=== PATIENT | male | born 1950 | race Caucasian/White ===

== ENCOUNTER → 2017-09-12 10:23 | Outpatient (CLI) | payer MEDICARE, OTHER, SELFPAY ==
--- NOTE | 2017-09-12 | CYSPIN_PTH ---
PATIENT: JESUS HEARD LOC: [facility] U#:[id number] AGE/SX: 74/M ROOM: RE09/12/[address]: JOHNNA: 1950 BED: DIS: SPEC #: [id number] RECD: 09/12/17 14:23 STATUS: ROLAN BONILLA #: [id number] OLMAN: 09/12/17 00:[address]: Edilberto Rodriguez,Out of DEPT: CYTOLOGY RECD BY: Jewel Mcmillan Tissues: Urine Procedures: Pap Stain (control) Special Stain Group II Cytospin Fluid HEADER OPERATION: Not noted PRE-OP DIAGNOSIS: Hematuria TISSUE SUBMITTED: Urine for cytology DIAGNOSIS CYTOLOGY Urine for cytology (cytospin): Negative for malignant cells. AM:avery 09/13/17 CYTOLOGY STUDY Slides are reviewed. CYTOLOGY GROSS Received is 12 ml of gold clear fluid labeled with the patient's name and and designated per the requisition as urine. Submitted for cytology preparation. 09/12/17 TC:5 CPT: 38174
[2017-09-12 10:42] LABS: Cytology, Body Fluid / CSF SEE PATHOLOGY REPORT
[2017-09-12 12:04] LABS: Color, Urine Yellow (Yellow); Glucose, Dipstick Normal (Normal); Ketone-Dipstick Negative (Negative); Leukocyte Esterase-Dipstick 25 /ul (Negative); Nitrite-Dipstick Negative (Negative); Occult Blood-Urine 25 /ul (Negative); Protein-Dipstick 500 mg/dl (Negative); Specific Gravity, Urine 1.015 (1.002-1.030); Urine Bilirubin Dipstick Negative (Negative); Urine Clarity Clear (Clear); Urine Urobilinogen 1 mg/dl (Normal); Urine pH 6.5 (5.0 - 8.0)
[2017-09-12 12:13] LABS: PSA,Total - Annual Screen 2.37 ng/mL (0.00-4.00)
[2017-09-12 13:42] LABS: Bacteria 0 SEEN /hpf (None Seen); Mucous, Urine 0 SEEN /hpf (<or=2+); White Blood Cells 0 SEEN /hpf (0-5)
[2017-09-12 13:55] LABS: Squamous Epithelial Cells - UA 0-5 SEEN /hpf (0-5)
[2017-09-12 13:56] LABS: Red Blood Cells-Urine 0-5 SEEN /hpf (0-5)
== END ==
DX: R31.29 Other microscopic hematuria (principal); N40.1 Benign prostatic hyperplasia with lower urinary tract symptoms; Z12.5 Encounter for screening for malignant neoplasm of prostate
CPT/HCPCS: 36415; 81001; 81002; 84153; 88108; 88313; G0103

== ENCOUNTER → 2017-10-12 16:20 | Outpatient (CLI) | payer MEDICARE, OTHER, SELFPAY ==
--- NOTE | 2017-10-12 09:47 | COLBX_PTH ---
PATIENT: JESUS HEARD LOC: [facility] U#:[id number] AGE/SX: 74/M ROOM: RE10/12/[address]: Dr. Jermaine Maldonado MD : 1950 BED: DIS: SPEC #: [id number] RECD: 10/12/17 15:48 STATUS: ROLAN CHAD #: [id number] OLMAN: 10/12/17 09:[address]: Jermaine Maldonado DEPT: SURGICAL PATHOLOGY RECD BY: Richard Weir ENTERED: 10/15/17 08:05 SP TYPE: COLON BX OTHR DR: NOEMY Tissues: A - Cecum, NOS B - COLON BIOPSY Procedures: Surgery Specimen Level IV HEADER OPERATION: Colonoscopy with polypectomy PRE-OP DIAGNOSIS: Screening / polyp TISSUE SUBMITTED: A ? Cecal polyp and polyp biopsies, rule out adenoma, B ? Hepatic flexure polyp MICROSCOPIC DIAGNOSIS A. Cecal polyp and polyp biopsy: Fragments of tubulovillous adenoma. B. Hepatic flexure polyp, biopsy: Fragments of tubular adenoma. ALANNA:avery 10/16/17 MICROSCOPIC DESCRIPTION Slides are reviewed. GROSS DESCRIPTION A - Received in fixative is one container labeled with the patient's name and designated cecal polyp and polyp biopsy. The specimen consists of a piece of easton-pink polyp measuring 0.5 x 0.4 x 0.3 cm. Also present in the container are multiple fragments of easton soft tissue measuring in aggregate 0.3 x 0.2 x 0.1 cm. The entire specimen is submitted in one cassette. B - Received in fixative is one container labeled with the patient's name and designated hepatic flexure polyp. The specimen consists of multiple irregular fragments of light easton soft tissue that in aggregate measure 1 x 0.3 x 0.1 cm. The specimen is totally submitted in one cassette. / ALANNA:avery 10/15/17 TC:5 CPT: 71635 x2
== END ==
PROVIDERS: Visit Provider Internal Medicine Gastroenterology
DX: Z12.11 Encounter for screening for malignant neoplasm of colon (principal); K63.5 Polyp of colon
CPT/HCPCS: 88305

== ENCOUNTER → 2018-05-06 18:12 | Outpatient (CLI) | payer MEDICARE, OTHER, SELFPAY ==
[2018-05-06 18:24] LABS: Color, Urine Yellow (Yellow); Glucose, Dipstick Normal (Normal); Ketone-Dipstick 5 mg/dl (Negative); Leukocyte Esterase-Dipstick 500 /ul (Negative); Mucous, Urine 0 SEEN /hpf (<or=2+); Nitrite-Dipstick Positive (Negative); Occult Blood-Urine 25 /ul (Negative); Protein-Dipstick 500 mg/dl (Negative); Specific Gravity, Urine 1.015 (1.002-1.030); Urine Bilirubin Dipstick Negative (Negative); Urine Clarity Cloudy (Clear); Urine Urobilinogen 4 mg/dl (Normal)
[2018-05-06 18:34] LABS: Bacteria 2+ /hpf (None Seen); Red Blood Cells-Urine 0-5 SEEN /hpf (0-5); Squamous Epithelial Cells - UA 0-5 SEEN /hpf (0-5); White Blood Cells 50-100 SEEN /hpf (0-5)
== END ==
PROVIDERS: Visit Provider Physician Assistant
DX: N39.0 Urinary tract infection, site not specified (principal); R35.0 Frequency of micturition
CPT/HCPCS: 81001; 87077; 87086; 87088; 87186

== ENCOUNTER → 2018-05-31 08:11 | Outpatient (CLI) | payer MEDICARE, OTHER, SELFPAY ==
[2018-05-31 11:04] LABS: ALB/GLOB Ratio 0.8 RATIO (0.9-2.4); AST(SGOT) 71 U/L (15-37); Alanine Aminotransfer ALT/SGPT 58 U/L (16-61); Albumin, Serum 3.2 g/dL (3.2-5.0); Alkaline Phosphatase 76 U/L (45-117); Anion Gap 7 (5-15); BUN 13 mg/dL (7-18); BUN/Creat Ratio 13.8 RATIO (10-20); Calcium,Total 8.3 mg/dL (8.5-10.1); Chloride 106 mmol/L (98-107); Cholesterol 164 mg/dL (200); Creatinine, Serum 0.94 mg/dL (0.70-1.30); EST Glomerular Filtration Rate 85 mL/min (>60); Est Glom Filt Rate - Afr Amer 102 mL/min (>60); Globulin 3.8 g/dL (2.2-4.2); Glucose 101 mg/dL (74-106); High Density Lipoprotein 41 mg/dL; Potassium 3.8 mmol/L (3.5-5.1); Sodium Level 140 mmol/L (136-145); Triglycerides 85 mg/dL; Very Low Density Lipoprotein 17 mg/dL (5-40)
== END ==
PROVIDERS: Family Provider Internal Medicine; PCP Internal Medicine
DX: E11.9 Type 2 diabetes mellitus without complications (principal); I48.0 Paroxysmal atrial fibrillation; E26.09 Other primary hyperaldosteronism; Z12.5 Encounter for screening for malignant neoplasm of prostate
CPT/HCPCS: 36415; 80053; 80061

== ENCOUNTER → 2018-12-10 15:09 | Outpatient (CLI) | payer MEDICARE, OTHER, SELFPAY ==
[2018-10-09 08:29] VITALS: BMI 35.2
[2018-12-10 17:59] LABS: Anion Gap 7 (5-15); BUN 27 mg/dL (7-18); BUN/Creat Ratio 21.6 RATIO (10-20); Calcium,Total 9.6 mg/dL (8.5-10.1); Chloride 104 mmol/L (98-107); Creatinine, Serum 1.25 mg/dL (0.70-1.30); EST Glomerular Filtration Rate 61 mL/min (>60); Est Glom Filt Rate - Afr Amer 74 mL/min (>60); Glucose 110 mg/dL (74-106); Potassium 4.5 mmol/L (3.5-5.1); Sodium Level 139 mmol/L (136-145)
== END ==
PROVIDERS: Family Provider Internal Medicine; PCP Internal Medicine; Referring Provider Nurse Practitioner Family; Visit Provider Nurse Practitioner Family
DX: I10 Essential (primary) hypertension (principal)
CPT/HCPCS: 36415; 80048

== ENCOUNTER → 2019-06-02 09:42 | Outpatient (CLI) | payer MEDICARE, OTHER, SELFPAY ==
[2019-05-23 11:18] VITALS: BMI 35.2
[2019-06-02 12:35] LABS: Hematocrit 35.3 % (40-54); Hemoglobin 11.9 g/dL (13.0-16.5); Mean Corp Hgb Conc 33.7 g/dL (32-36); Mean Corpuscular Hgb 38.4 pg (27.0-32.0); Mean Corpuscular Volume 113.9 fL (80-94); Mean Platelet Vol. 11.8 fl (6.2-12.0); POSITIVE COUNT YES; POSITIVE MORPHOLOGY YES; Platelet Count 91 K/mm3 (150-450); RBC Distribution Width SD 54.6 fl (35.1-43.9); White Blood Count 2.7 K/mm3 (4.4-11.0)
[2019-06-02 12:38] LABS: Differential Indicated MANUAL DIFF
[2019-06-02 12:59] LABS: AST(SGOT) 92 U/L (15-37); Alanine Aminotransfer ALT/SGPT 69 U/L (16-61); Albumin, Serum 3.9 g/dL (3.2-5.0); Alkaline Phosphatase 71 U/L (45-117); Anion Gap 8 (5-15); BUN 33 mg/dL (7-18); BUN/Creat Ratio 22.8 RATIO (10-20); Calcium,Total 9.6 mg/dL (8.5-10.1); Chloride 104 mmol/L (98-107); Cholesterol 169 mg/dL (200); Creatinine, Serum 1.45 mg/dL (0.70-1.30); EST Glomerular Filtration Rate 51 mL/min (>60); Est Glom Filt Rate - Afr Amer 62 mL/min (>60); Globulin 3.8 g/dL (2.2-4.2); Glucose 113 mg/dL (74-106); High Density Lipoprotein 64 mg/dL; Potassium 4.8 mmol/L (3.5-5.1); Protein, Total 7.7 g/dL (6.4-8.2); Sodium Level 138 mmol/L (136-145); Triglycerides 68 mg/dL; Very Low Density Lipoprotein 14 mg/dL (5-40)
[2019-06-02 13:03] LABS: Hemoglobin A1c 5.8 % (4.2-6.3)
[2019-06-02 13:17] LABS: Hypochromasia RARE; Lymphocyte 36 % (19-41); Macrocytosis 1+; Monocyte 17 % (0-10); Neutrophil-Band 3 % (0-5); Neutrophil-Segmented 44 % (47-70); Platelet Estimate MOD DEC (ADEQ); Total Cells Counted 100 (MANUAL DIFF)
[2019-06-02 13:18] LABS: Absolute Lymphocyte Count 0.97 X10^3/uL (0.83-4.51); Absolute Neutrophil Count 1.2 X10^3/uL (2.0-7.7)
[2019-06-02 13:47] LABS: Microalbumin:Creatinine Ratio 263.7 mg/g CRE (<30 mg/g CRE)
[2019-06-03 12:11] LABS: Vitamin B12 337 pg/mL (211-911)
[2019-06-03 14:17] LABS: Pathologist Review Reviewed
== END ==
PROVIDERS: Family Provider Internal Medicine; PCP Internal Medicine; Visit Provider Internal Medicine
DX: D61.818 Other pancytopenia (principal); E53.8 Deficiency of other specified B group vitamins; E11.9 Type 2 diabetes mellitus without complications; E78.5 Hyperlipidemia, unspecified
CPT/HCPCS: 36415; 80053; 80061; 82043; 82570; 82607; 82746; 83036; 83921; 85025

== ENCOUNTER → 2019-06-13 08:10 | Outpatient (CLI) | payer MEDICARE, OTHER, SELFPAY ==
[2019-06-02 09:55] VITALS: BMI 35.2
--- NOTE | 2019-06-13 08:25 | US_ITS ---
STUDY: ABDOMINAL ULTRASOUND - RIGHT UPPER QUADRANT REASON FOR VISIT: Male, 68 years old fatty liver. Abnormal liver function tests. TECHNIQUE: Ultrasound evaluation of the right upper quadrant was performed with real-time and static burrell-scale imaging. TECHNICAL QUALITY: Adequate. COMPARISON: None. FINDINGS: Liver: The liver is slightly enlarged and measures 18.1 cm. There is increased echogenicity consistent with fatty infiltration. The bile ducts are within normal limits. There is hepatic color flow. The direction of portal flow is hepatopetal. There is no demonstrated mass lesion. Gallbladder: Normal distended gallbladder. The gallbladder wall measures 2.8 mm. There is a negative sonographic Batista's sign. There is no pericholecystic fluid. There is a solitary echogenic gallstone within the gallbladder. Common Bile Duct (C.B.D.): The common bile duct measures 3.8 mm. Pancreas: Normal size of the head, body and tail of the pancreas. There is normal echogenicity of the pancreas. There is no demonstrated pancreatic mass or cyst. Right Kidney: Normal size of the right kidney. The right kidney measures 12 cm x 5.5 cm x 6.3 cm. Normal renal cortex. The right cortex measures 1.7 cm. There is no demonstrated renal mass or cyst. There is no right hydronephrosis. US/Abdomen Limited IMPRESSION: Mild hepatomegaly and fatty infiltration of the liver. 6 mm gallstone. Electronically Signed: Kevin Landaverde, at 15:12 EDT , Service support ,
== END ==
PROVIDERS: Family Provider Internal Medicine; PCP Internal Medicine; Referring Provider Internal Medicine; Visit Provider Internal Medicine
DX: R74.8 Abnormal levels of other serum enzymes (principal); K76.0 Fatty (change of) liver, not elsewhere classified
CPT/HCPCS: 76705

== ENCOUNTER → 2019-07-04 08:11 | Outpatient (CLI) | payer MEDICARE, OTHER, SELFPAY ==
[2019-06-24 13:49] VITALS: BMI 32.6
--- NOTE | 2019-07-03 | IMM_PTH ---
PATIENT: JESUS HEARD LOC: CT U#:[id number] AGE/SX: 74/M ROOM: RE07/04/[address]: Dr. Sincere Virk MD : 1950 BED: DIS: SPEC #: [id number] RECD: 07/07/19 10:16 STATUS: ROLAN REWendy #: [id number] OLMAN: 07/03/19 00:[address]: Sincere Virk DEPT: IMMUNOHISTOCHEMISTRY RECD BY: Sharla Astudillo ENTERED: 07/07/19 10:18 SP TYPE: IMMUNO OTHR DR: Dr. Ki Townsend MD Tissues: B - Bone marrow of iliac crest Procedures: CD20 (add) CD45 (add) CD5 (add) CD79A (add) CD3 (initial) PHYSICIAN & INSTITUTION [place] [id number] SPECIMEN INFORMATION: Tissue Source: B - Bone marrow biopsy clot Clinical Info: Pancytopenia Specimen Number: [id number] CPT code: 30632, 47606 x4 METHODOLOGY: Deparaffinized sections of prefer/formalin-fixed tissue or PAP/DQ stained slides are incubated with monoclonal/polyclonal antibodies/oligonucleotide probes. Localization is made via biotin free immunoperoxidase method. Appropriate controls are performed and reacted as expected. Results on target cell population are indicated in the following table: RESULTS: ANTIBODY / CLONE RESULT Block B CD3 (PS1) positive CD5 (SP10) positive CD79a (11E3) positive CD20 (L26) positive CD45 (RP2/18) positive These tests were developed and their performance characteristics determined by [facility]. They may not have been cleared or approved by the U.S. Food and Drug Administration. The FDA has determined that such clearance or approval is not necessary. The above immunohistochemical/dualISH markers are ordered and reviewed by the Pathologist. INTERPRETATION: B. Bone marrow biopsy clot: Scant interstitial small lymphocytic infiltrates and a minute lymphoid aggregate, polytypic in nature. See comment. This case has been reviewed in consultation with Dr. Kemp who concurs with the above diagnosis. ALANNA:avery 07/08/19
--- NOTE | 2019-07-03 | BMB_PTH ---
PATIENT: JESUS HEARD LOC: CT U#:[id number] AGE/SX: 74/M ROOM: RE07/04/[address]: Dr. Sincere Virk MD : 1950 BED: DIS: SPEC #: [id number] RECD: 07/04/19 09:58 STATUS: ROLAN CHAD #: [id number] OLMAN: 07/03/19 00:[address]: Sincere Virk DEPT: BONE MARROW RECD BY: Gordo Le ENTERED: 07/04/19 11:11 SP TYPE: BMB OT DR: Dr. Ki Townsend MD Tissues: A - Bone marrow, NOS B - Bone marrow, NOS C - Bone marrow, NOS Procedures: Decalcification bone/plaque Bone Marrow Aspiration Bone Marrow Core Biopsy Iron Stain Bone Marrow HEADER OPERATION: Bone marrow biopsy and aspiration PRE-OP DIAGNOSIS: Pancytopenia TISSUE SUBMITTED: A - Core, B - Clot, C - Smears, and send outs (flow, cytogenetics and MDS FISH) BONE MARROW DIAGNOSIS Right hip bone marrow core, clot and aspirate smears: Normocellular marrow with trilineage hematopoiesis. A minute lymphoid aggregate. . Flow cytometry study from [facility] shows CD5 positive, CD23 positive B-cell population, <1% of leukocytes. Complete report is viewable in patient's EMR.. SJ:avery 07/09/19 COMMENT The bone marrow core biopsy is limited in evaluation and bone marrow clot shows minute fragments of bone marrow clots. Aspirate smears show marked hemodilution. If there is a high suspicion of lymphoma, lymph node biopsy is suggested if clinically indicated. Case has been reviewed in consultation with Dr. Kemp who concurs with the above diagnosis. IDC:AM BONE MARROW STUDY Slides are reviewed. CBC DATE: 07/04/19 WBC 3.3; RBC 3.04; HGB 11.3; HCT 33.7; MCV 110.9; RDW 11.9; PLTS 100,000 SEGS 57%; LYMPHS 25%; MONOS 12%; EOS 5%; BASOS 0%, META 1% PERIPHERAL SMEAR: Submitted. RBC: Macrocytic anemia. WBC: Leukopenia and neutropenia. The WBC count is compatible to as reported above. PLTS: Mildly decreased. BONE MARROW ASPIRATE DIFFERENTIAL: 200 cell count. Blasts % (normal 0-2): 0 Promyelocytes % (normal 1-5): 0 Myelocytes and metamyelocytes % (normal 17-41): 42 Bands and Segs % (normal 15-32): 45 Eos % (normal 1-6): 1 Basos % (normal 0-1): 0 Monocytes % (normal 0-4): 2 Erythroid Precursors % (normal 17-35): 6 Lymphocytes % (normal 7-13): 4 Plasma Cells % (normal 0-2): 0 ASPIRATE FINDINGS: Site: Right hip Aspicular, Hypocellular M/E ratio: See comment (Normal 1.5-4.0) Comment: Marked hemodilution is noted. Above count may not be accurate due to hemodilution. Megakaryocytes are not seen. All the submitted smears are examined. CORE BIOPSY FINDINGS: Site: Right hip Adequacy: Limited Cellularity: 50-60% M/E ratio: Within normal limits. Megakaryocytes: Present and adequate in number. Bony trabeculae: Unremarkable. Granulomas: Absent. Lymphoid aggregate: Absent. Atypical infiltrate: Absent. ASPIRATE CLOT FINDINGS: Site: Right hip Marrow particles: Rare Cellularity: 50% M/E ratio: Within normal limits. Megakaryocytes: Present and adequate in number. Granulomas: Absent. Lymphoid aggregates: A minute lymphoid aggregate is noted. Atypical infiltrates: Absent. Comment: Immunohistochemistry ([id number]) shows scant interstitial infiltrates of small lymphocytes and a minute lymphoid aggregate, polytypic in nature. SPECIAL STAINS WITH MATCHED CONTROLS: Iron: Absent Reticulin: No significant increase of reticulin fibers is noted. PAS: Highlights myeloid cells and megakaryocytes. BONE MARROW GROSS A - Received is a container labeled with the patient's name and designated bone marrow right. The specimen consists of a piece of core biopsy of bone measuring 0.5 cm in length and 0.2 cm in diameter. The entire specimen is submitted in one cassette after decalcification. B - Received labeled with the patient's name and designated bone marrow right is a specimen that consists of approximately 0.5 cc of bloody fluid that on filtration yields multiple minute fragments of blood clots measuring in aggregate 0.3 x 0.3 x <0.1 cm. The specimen is totally submitted in one cassette. C - Also received are 11 unstained and 1 peripheral stained slides. The unstained slides are submitted for appropriate staining. Also received are three green top tubes which are sent to our reference lab for flow, cytogenetics and MDS FISH. 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 The case was examined at [facility] (#[id number]) and the following diagnosis was rendered. Bone marrow, aspirate smears, core biopsy and clot section: Suboptimal sampling showing normocellular marrow with trilineage hematopoiesis. Macrocytic anemia and thrombocytopenia and leukopenia. Please see complete above mentioned consultation report in EMR
[2019-07-04] VITALS (9 sets, daily range): BP systolic 100–159; BP diastolic 42–88; PULSE 81–100; RESP 12–19; TEMP 37; O2SAT 98–100; BMI 31.5
--- NOTE | 2019-07-04 08:26 | CT_ITS ---
PROCEDURE: CT GUIDED BONE marrow biopsy of the posterior aspect of the right iliac bone. DATE: July 04, 2019. INDICATION: Male, 68 years old. [place] cytopenia. PHYSICIAN: Kevin Landaverde M.D. RADIATION DOSAGE (If Supplied By Facility): CTDIvol = ( 16.6 ) mGy, DLP = ( 415.31 ) mGycm. Individualized dose optimization techniques were utilized. PROCEDURE: The risks, benefits, and alternatives to the procedure were explained to the patient. The specific risk of hemorrhage and infection requiring further treatment or intervention was detailed and accepted. Follow-up instructions were discussed with the patient as well. Written informed consent was obtained. The patient was brought into the CT suite and placed in the prone position. . An appropriate entry site was identified. The overlying skin was prepped and draped in the usual sterile fashion. 1% lidocaine was administered subcutaneously for local anesthesia. Conscious sedation was performed. The patient received 3 mg of Versed and 75 mcg of fentanyl intravenously. The patient was monitored independently by the department nurse. Conscious sedation was started 9:28 AM and terminated at 9:[address] guidance, a a bone marrow aspirate as well as bone marrow biopsy were performed utilizing an 11-gauge bone marrow biopsy kit. The specimens were then placed in the appropriate fluid and transported to the laboratory for analysis. Hemostasis was obtained. The patient tolerated the procedure well without immediate complications. CT/Biopsy/Inj or Needle Placement IMPRESSION: Successful CT guided bone marrow biopsy and bone marrow aspiration of the posterior aspect of the right iliac bone, as described above. Electronically Signed: Kevin Landaverde, at 10:33 EST , Service support ,
[2019-07-04 08:34] LABS: Hematocrit 33.7 % (40-54); Hemoglobin 11.3 g/dL (13.0-16.5); Mean Corp Hgb Conc 33.5 g/dL (32-36); Mean Corpuscular Hgb 37.2 pg (27.0-32.0); Mean Corpuscular Volume 110.9 fL (80-94); POSITIVE COUNT YES; POSITIVE MORPHOLOGY YES; Platelet Count 100 K/mm3 (150-450); RBC Distribution Width CV 11.9 % (11.6-14.6); RBC Distribution Width SD 48.7 fl (35.1-43.9); Red Blood Count 3.04 M/mm3 (4.6-6.2); White Blood Count 3.3 K/mm3 (4.4-11.0)
[2019-07-04 08:41] LABS: International Normalized Ratio 1.1; Partial Thromboplast Time 29.3 Seconds (24.1-36.2); Prothrombin Time (Protime)PT. 14.1 SECONDS (11.7-14.9)
[2019-07-04 08:42] LABS: Differential Indicated MANUAL DIFF
[2019-07-04 09:14] LABS: Eosinophil 5 % (0-5); Lymphocyte 25 % (19-41); Metamyelocyte 1 % (0-1); Monocyte 12 % (0-10); Neutrophil-Segmented 57 % (47-70); Platelet Estimate SLT DEC (ADEQ); Total Cells Counted 100 (MANUAL DIFF)
[2019-07-04 09:15] LABS: Absolute Neutrophil Count 1.9 X10^3/uL (2.0-7.7); Red Cell Morphology NORM C+C NORMAL (NORM C&C)
[2019-07-04 09:16] LABS: Absolute Lymphocyte Count 0.83 X10^3/uL (0.83-4.51); Lymphocyte # 0.83 X10^3/ul (4.0)
[2019-07-04] MEDS: Midazolam 2 MG/2 ML Syringe IV ×2 (09:28→09:46)
[2019-07-04] MEDS: fentaNYL 100 MCG/2 ML Ampul IV ×2 (09:28→09:46)
[2019-07-07 14:08] LABS: Pathologist Review Reviewed
== END ==
PROVIDERS: Family Provider Internal Medicine; PCP Internal Medicine; Referring Provider Internal Medicine Hematology & Oncology; Visit Provider Internal Medicine Hematology & Oncology
DX: D61.818 Other pancytopenia (principal); I48.91 Unspecified atrial fibrillation; E11.9 Type 2 diabetes mellitus without complications; I10 Essential (primary) hypertension; E78.5 Hyperlipidemia, unspecified; H54.40 Blindness, one eye, unspecified eye; Z87.891 Personal history of nicotine dependence; F10.20 Alcohol dependence, uncomplicated; Y90.9 Presence of alcohol in blood, level not specified
CPT/HCPCS: 38221; 36415; 77012; 85025; 85610; 85730; 88305; 88311; 88313; 88341; 88342; 99156; 99157; J7040; A4216

== ENCOUNTER → 2019-12-16 10:25 | Outpatient (CLI) | payer MEDICARE, OTHER, SELFPAY ==
[2019-09-15 13:56] VITALS: BMI 33.5
[2019-12-16 10:49] LABS: Absolute Lymphocyte Count 0.98 X10^3/uL (0.83-4.51); Absolute Neutrophil Count 1.3 X10^3/uL (2.0-7.7); Eosinophil# 0.02 X10^3/uL; Eosinophils% 0.7 % (0-5); Hematocrit 32.8 % (40-54); Hemoglobin 10.9 g/dL (13.0-16.5); Lymphocyte # 0.98 X10^3/ul (4.0); Mean Corp Hgb Conc 33.2 g/dL (32-36); Mean Corpuscular Hgb 36.6 pg (27.0-32.0); Mean Corpuscular Volume 110.1 fL (80-94); Mean Platelet Vol. 12.5 fl (6.2-12.0); Monocyte# 0.38 X10^3/uL; Monocyte% 13.6 % (0-10); NRBC Flagged by Analyzer 0 % (0-5); Neutrophil # 1.31 X10^3/uL (2.7-7.7); Neutrophil % 46.8 % (47-70); POSITIVE COUNT YES; Platelet Count 75 K/mm3 (150-450); RBC Distribution Width CV 13.1 % (11.6-14.6); RBC Distribution Width SD 51.8 fl (35.1-43.9); Red Blood Count 2.98 M/mm3 (4.6-6.2); White Blood Count 2.8 K/mm3 (4.4-11.0)
[2019-12-16 10:51] LABS: Differential Indicated SCAN CRITERIA MET
[2019-12-16 10:52] LABS: ALB/GLOB Ratio 1.1 RATIO (0.9-2.4); AST(SGOT) 37 U/L (15-37); Alanine Aminotransfer ALT/SGPT 42 U/L (16-61); Albumin, Serum 3.9 g/dL (3.2-5.0); Alkaline Phosphatase 64 U/L (45-117); Anion Gap 4 (5-15); BUN 36 mg/dL (7-18); BUN/Creat Ratio 21.8 RATIO (10-20); Calcium,Total 8.9 mg/dL (8.5-10.1); Chloride 112 mmol/L (98-107); Creatinine, Serum 1.65 mg/dL (0.70-1.30); EST Glomerular Filtration Rate 44 mL/min (>60); Est Glom Filt Rate - Afr Amer 53 mL/min (>60); Globulin 3.6 g/dL (2.2-4.2); Glucose 119 mg/dL (74-106); Potassium 5.2 mmol/L (3.5-5.1); Protein, Total 7.5 g/dL (6.4-8.2); Sodium Level 140 mmol/L (136-145)
[2019-12-16 11:16] LABS: Differential Comment SCANNED; Platelet Estimate MOD DEC (ADEQ)
== END ==
PROVIDERS: PCP Internal Medicine; Referring Provider Internal Medicine; Visit Provider Internal Medicine
DX: D46.20 Refractory anemia with excess of blasts, unspecified (principal); I10 Essential (primary) hypertension; K76.0 Fatty (change of) liver, not elsewhere classified
CPT/HCPCS: 80053; 85025

== ENCOUNTER → 2019-12-22 14:16 | Outpatient (CLI) | payer MEDICARE, OTHER, SELFPAY ==
[2019-12-19 15:40] VITALS: BMI 33.5
[2019-12-22 15:04] LABS: Hemoglobin A1c 6.7 % (4.2-6.3)
== END ==
PROVIDERS: PCP Internal Medicine; Referring Provider Internal Medicine; Visit Provider Internal Medicine
DX: E11.9 Type 2 diabetes mellitus without complications (principal)
CPT/HCPCS: 82043; 82570; 83036

== ENCOUNTER → 2019-12-29 14:34 | Outpatient (CLI) | payer MEDICARE, OTHER, SELFPAY ==
[2019-12-19 15:40] VITALS: BMI 33.5
[2019-12-29 15:56] LABS: Anion Gap 6 (5-15); BUN 39 mg/dL (7-18); BUN/Creat Ratio 24.1 RATIO (10-20); Calcium,Total 9.3 mg/dL (8.5-10.1); Chloride 111 mmol/L (98-107); Creatinine, Serum 1.62 mg/dL (0.70-1.30); EST Glomerular Filtration Rate 45 mL/min (>60); Est Glom Filt Rate - Afr Amer 55 mL/min (>60); Glucose 182 mg/dL (74-106); Sodium Level 141 mmol/L (136-145)
== END ==
PROVIDERS: PCP Internal Medicine; Visit Provider Internal Medicine
DX: E87.5 Hyperkalemia (principal)
CPT/HCPCS: 80048

== ENCOUNTER → 2020-01-29 09:43 | Outpatient (CLI) | payer MEDICARE, OTHER, SELFPAY ==
[2019-12-19 15:40] VITALS: BMI 33.5
[2020-01-29 12:44] LABS: Anion Gap 5 (5-15); BUN 22 mg/dL (7-18); Calcium,Total 9.6 mg/dL (8.5-10.1); Chloride 108 mmol/L (98-107); Creatinine, Serum 1.22 mg/dL (0.70-1.30); EST Glomerular Filtration Rate 63 mL/min (>60); Est Glom Filt Rate - Afr Amer 76 mL/min (>60); Glucose 121 mg/dL (74-106); Potassium 4.3 mmol/L (3.5-5.1); Sodium Level 140 mmol/L (136-145)
== END ==
PROVIDERS: PCP Internal Medicine; Referring Provider Internal Medicine; Visit Provider Internal Medicine
DX: I10 Essential (primary) hypertension (principal)
CPT/HCPCS: 36415; 80048

== ENCOUNTER → 2020-02-05 17:56 | Outpatient (CLI) | payer MEDICARE, OTHER, SELFPAY ==
[2019-12-19 15:40] VITALS: BMI 33.5
== END ==
PROVIDERS: PCP Internal Medicine; Visit Provider Nurse Practitioner
DX: Z11.59 Encounter for screening for other viral diseases (principal)
CPT/HCPCS: 87635; G2023; U0003